=== PATIENT | female | born 1980 | race Hispanic/Latino ===

== ENCOUNTER 2019-08-07 10:01 | Emergency (ER) | payer OTHER ==
[2019-08-07] MEDS ORDERED: KETOROLAC TROMETHAMINE 30MG/ML ONE (10:20)
[2019-08-07] MEDS ORDERED: ONDANSETRON HCL 4 MG/2 ML VIAL ONE (10:20)
[2019-08-07] MEDS ORDERED: SODIUM CHLORIDE 0.9% 1000ML 1,000 ML IV ONE (10:20)
[2019-08-07 10:46] LABS: APPEARANCE,URINE Clear (CLEAR); BILIRUBIN,URINE Negative (NEGATIVE); COLOR,URINE Yellow (YELLOW); GLUCOSE, URINE (UA) Negative (NEGATIVE); KETONES,URINE Negative (NEGATIVE); LEUKOCYTE ESTERASE ,URINE Moderate (NEGATIVE); NITRATE,URINE Negative (NEGATIVE); OCCULT BLOOD,URINE Nonhemolyzed Trace (NEGATIVE); PH,URINE 5.5 (5.0-8.0); PROTEIN,URINE POS 1+ mg/dL (NEGATIVE)
[2019-08-07 10:53] LABS: HCG,QUAL RESULT NEGATIVE (NEGATIVE)
[2019-08-07] MEDS ORDERED: CEFTRIAXONE SODIUM 1 GM ONE (11:15)
[2019-08-07] MEDS ORDERED: SODIUM CHLORIDE 0.9% 50 ML IV ONE (11:16)
[2019-08-07 11:28] LABS: BACTERIA,URINE Few /HPF (None Seen); RBC,URINE 0-1 /HPF (0-1); SQUAMOUS EPITHELIAL CELL,UR 0-2 /HPF (0-2)
[2019-08-07] MEDS ORDERED: PHENAZOPYRIDINE HCL 200 MG TABLET ONE (11:46)
== END 2019-08-07 12:03 | disposition home or self-care (01) ==
LOC: EDH 10:01
DX: N39.0 Urinary tract infection, site not specified (principal); Z88.8 Allergy status to other drugs, medicaments and biological substances
CPT/HCPCS: 81001; 81025; 87088; 99283; J0696; J1885; J2405; J7030